=== PATIENT | female | born 1980 | race Caucasian/White ===

== ENCOUNTER 2020-04-06 16:46 | Outpatient (CLI) | payer OTHER, SELFPAY ==
--- NOTE | ~2020-04-06 | XR_ITS ---
EXAMINATION: XR chest 2V EXAM DATE: 04/06/2020 17:21 INDICATION: Dyspnea. COVID 19 positive. TECHNIQUE: Frontal and lateral projections of the chest obtained and reviewed. There is no prior jaleesa dy for comparison. FINDINGS: Possible small amount of left infrahilar airspace disease suspected without dense confluent consolidation. No pneumothorax or pleural effusion. Cardiomediastinal silhouette is normal. There ar e no osseous abnormalities identified. IMPRESSION: Possible acute small amount of left infrahilar infection. Reviewed, dictated and finalized at location A. T ADMINISTRATOR
[2020-04-06 17:51] LABS: D Dimer 0.27 ug/mL (<0.48)
== END 2020-04-06 16:47 | disposition home or self-care (01) ==
PROVIDERS: PCP Physician Assistant; Visit Provider Physician Assistant
DX: R06.00 Dyspnea, unspecified (principal)
CPT/HCPCS: 36415; 71046; 85380